=== PATIENT | female | born 1995 | race Two or more races ===

== ENCOUNTER 2021-01-07 10:17 | Emergency (ER) | payer MEDICAID, OTHER ==
[~2021-01-07] VITALS: Ht 162.6 cm; Wt 131.5 kg
[2021-01-07] MEDS ORDERED: KETOROLAC TROMETH 60MG/2ML VIAL IM ONE (10:45)
[2021-01-07 10:49] LABS: Urine Bacteria FEW /hpf (None Seen); Urine Blood Negative /uL (Negative); Urine Mucus FEW (None Seen); Urine Specific Gravity 1.023 (1.001-1.035); Urine WBC 3 /hpf (0 - 5)
[2021-01-07 11:16] VITALS: BP 133/84
== END 2021-01-07 11:18 | disposition home or self-care (01) ==
LOC: ER 10:17
DX: S39.012A Strain of muscle, fascia and tendon of lower back, initial encounter (principal); M62.838 Other muscle spasm; E66.01 Morbid (severe) obesity due to excess calories; Z68.42 Body mass index [BMI] 45.0-49.9, adult; X58.XXXA Exposure to other specified factors, initial encounter; Y93.01 Activity, walking, marching and hiking; Y92.89 Other specified places as the place of occurrence of the external cause; Y99.8 Other external cause status
CPT/HCPCS: 81001; 96372; 99283; J1885

== ENCOUNTER 2022-07-05 09:54 | Observation (INO) | payer MEDICAID ==
[2022-07-05 10:54] LABS: Basophils # (auto) 0 10 ^3/uL (0-0.2); Basophils % (auto) 0.2 % (0.0-2.0); Eosinophils # (auto) 0 10 ^3/uL (0-0.8); Eosinophils % (auto) 0.4 % (0.0-7.0); Hemoglobin 11.4 g/dL (12.2-16.2); Lymphocytes # (auto) 1.6 10 ^3/uL (0.4-5.4); Lymphocytes % (auto) 15.9 % (10.0-50.0); Mean Corpuscular Hemoglobin 31.8 pg (28.0-32.0); Mean Corpuscular Hgb Conc. 35.5 g/dL (32.0-36.0); Mean Corpuscular Volume 89.7 fL (80.0-100.0); Monocytes # (auto) 0.9 10 ^3/uL (0-1.3); Monocytes % (auto) 8.4 % (0.0-12.0); Neutrophils # (auto) 7.7 10 ^3/uL (1.6-8.6); Neutrophils % (auto) 75.1 % (37.0-80.0); Nucleated Red Blood Cells % 0.1 %; Red Blood Cells 3.57 10^6/uL (4.0-5.20); Red Cell Distribution Width 12.6 % (11.8-14.3); White Blood Cell 10.2 10^3/uL (4.4-10.8)
[2022-07-05 11:15] LABS: Albumin 2.9 g/dL (3.4-5.0); BUN/Creatinine Ratio 19.6; Calcium 8.7 mg/dL (8.5-10.1); Potassium 4.1 mmol/L (3.5-5.1)
[2022-07-05 11:18] LABS: Bilirubin, Total 0.3 mg/dL (0.2-1.0)
[2022-07-05 11:40] LABS: INR 0.94 (0.9-1.15); Partial Thromboplastin Time 26.8 sec (24.6-33.4)
[2022-07-05 11:51] LABS: Urine Bacteria FEW /hpf (None Seen); Urine Blood Negative /uL (Negative); Urine Mucus FEW (None Seen); Urine Specific Gravity 1.011 (1.001-1.035); Urine WBC 2 /hpf (0 - 5)
[2022-07-07 18:26] LABS: Protein, Urine 5.9 mg/dL (0.0-11.9)
== END 2022-07-05 12:30 | disposition home or self-care (01) ==
LOC: LDRP 09:54 → UNDOADMOB 09:54 → LDRP 10:20
PROVIDERS: ADMIT Obstetrics & Gynecology; ATTEND Obstetrics & Gynecology
DX: O13.3 Gestational [pregnancy-induced] hypertension without significant proteinuria, third trimester (principal); Z3A.30 30 weeks gestation of pregnancy
CPT/HCPCS: 36415; 59025; 80053; 81001; 81002; 82570; 83615; 84156; 84550; 85025; 85362; 85379; 85384; 85610; 85730; 94760; G0378

== ENCOUNTER → 2022-08-16 | Outpatient (CLI) | payer MEDICAID ==
[2022-08-16 08:56] LABS: Basophils # (auto) 0 10 ^3/uL (0-0.2); Basophils % (auto) 0.1 % (0.0-2.0); Eosinophils # (auto) 0.1 10 ^3/uL (0-0.8); Eosinophils % (auto) 0.7 % (0.0-7.0); Hematocrit 35.3 % (36.0-46.0); Hemoglobin 12.5 g/dL (12.2-16.2); Lymphocytes # (auto) 2.1 10 ^3/uL (0.4-5.4); Mean Corpuscular Hgb Conc. 35.3 g/dL (32.0-36.0); Mean Corpuscular Volume 87.9 fL (80.0-100.0); Monocytes # (auto) 0.9 10 ^3/uL (0-1.3); Monocytes % (auto) 6.9 % (0.0-12.0); Neutrophils # (auto) 9.8 10 ^3/uL (1.6-8.6); Neutrophils % (auto) 76.3 % (37.0-80.0); Red Blood Cells 4.02 10^6/uL (4.0-5.20); White Blood Cell 12.9 10^3/uL (4.4-10.8)
[2022-08-17 08:07] LABS: RPR Non Reactive (Non Reactive)
== END | disposition home or self-care (01) ==
LOC: LAB 08:43
PROVIDERS: ATTEND Obstetrics & Gynecology
DX: Z34.80 Encounter for supervision of other normal pregnancy, unspecified trimester (principal); Z3A.00 Weeks of gestation of pregnancy not specified
CPT/HCPCS: 36415; 85025; 86592

== ENCOUNTER 2022-08-23 09:18 | Inpatient (IN) | payer MEDICAID ==
[~2022-08-23] VITALS: Ht 162.6 cm; Wt 96.2 kg
[2022-08-23] MEDS ORDERED: PREN-96 PO (09:38)
[2022-08-23 09:45] LABS: Basophils # (auto) 0 10 ^3/uL (0-0.2); Basophils % (auto) 0.3 % (0.0-2.0); Eosinophils # (auto) 0.1 10 ^3/uL (0-0.8); Eosinophils % (auto) 0.8 % (0.0-7.0); Hematocrit 34.5 % (36.0-46.0); Hemoglobin 12.1 g/dL (12.2-16.2); Lymphocytes # (auto) 1.7 10 ^3/uL (0.4-5.4); Mean Corpuscular Hemoglobin 30.9 pg (28.0-32.0); Mean Corpuscular Hgb Conc. 35.1 g/dL (32.0-36.0); Mean Corpuscular Volume 88.3 fL (80.0-100.0); Monocytes # (auto) 0.9 10 ^3/uL (0-1.3); Monocytes % (auto) 8.4 % (0.0-12.0); Neutrophils # (auto) 8.1 10 ^3/uL (1.6-8.6); Neutrophils % (auto) 74.5 % (37.0-80.0); Red Blood Cells 3.91 10^6/uL (4.0-5.20); Red Cell Distribution Width 12.8 % (11.8-14.3); White Blood Cell 10.9 10^3/uL (4.4-10.8)
[2022-08-23 10:13] LABS: INR 0.93 (0.9-1.15); Partial Thromboplastin Time 27.6 sec (24.6-33.4)
[2022-08-23 10:15] LABS: Albumin 2.8 g/dL (3.4-5.0); BUN/Creatinine Ratio 15.7; Bilirubin, Total 0.5 mg/dL (0.2-1.0); Calcium 8.1 mg/dL (8.5-10.1); Potassium 3.9 mmol/L (3.5-5.1); Total Protein 6.2 g/dL (6.4-8.2); Uric Acid 4.2 mg/dL (2.6-6.0); Urine Bacteria FEW /hpf (None Seen); Urine Blood Negative /uL (Negative); Urine Specific Gravity 1.006 (1.001-1.035); Urine WBC 3 /hpf (0 - 5)
[2022-08-23] MEDS ORDERED: LABETALOL HCL 200 MG TAB PO ONE (10:15)
[2022-08-23 10:19] LABS: Protein, Urine 11.2 mg/dL (0.0-11.9)
[2022-08-23] MEDS ORDERED: LIDOCAINE 2%HCL (LOCAL ANESTH.) INJ 20ML MDV IJ PRN (11:30)
[2022-08-23] MEDS ORDERED: LACT. RINGERS/OXYTOCIN 20UNITS 500 ML IV ONE ×2 (11:30→12:00)
[2022-08-23] MEDS ORDERED: BUTORPHANOL TARTRATE 2 MG/1 ML VIAL IV PRN ×2 (11:30)
[2022-08-23] MEDS ORDERED: WITCH HAZEL-GLYCERIN PAD TOP PRN (11:30)
[2022-08-23] MEDS ORDERED: DERMOPLAST 60ML BOTTLE TOP PRN (11:30)
[2022-08-23] MEDS ORDERED: PROMETHAZINE HCL 25 MG/ML 1ML IV PRN (11:30)
[2022-08-23] MEDS ORDERED: PHISODERM TOP SOLN 240ML BTL TOP PRN (11:30)
[2022-08-23] MEDS: LACTATED RINGER'S 1,000 ML IV SCH ×2 (11:57→19:03)
[2022-08-23 12:10] LABS: Alcohol, Urine < 3.0 mg/dL (0-10); Amphetamine Screen, Urine NEGATIVE (NEGATIVE); Barbiturate Scree,Urine NEGATIVE (NEGATIVE); Benzodiazephine Screen, Urine NEGATIVE (NEGATIVE); Cannabinoid Screen, Urine NEGATIVE (NEGATIVE); Cocaine Screen, Urine NEGATIVE (NEGATIVE); Opiate Scree,Urine NEGATIVE (NEGATIVE); Phencyclidine Screen, Urine NEGATIVE (NEGATIVE)
[2022-08-23] MEDS: miSOPROStol 50 MCG per PRE-CUT 1/2 TAB PO PRN ×3 (12:25→20:51)
[2022-08-23] MEDS: hydrALAZINE HCL 20 MG/ML VL IV PRN ×3 (20:57→21:49)
[2022-08-23] MEDS: LABETALOL HCL 200 MG TAB PO SCH (21:48)
[2022-08-24] VITALS (9 sets, daily range): BP systolic 110–146; BP diastolic 53–92
[2022-08-24] MEDS: LACTATED RINGER'S 1,000 ML IV SCH ×3 (01:06→11:40)
[2022-08-24 07:07] LABS: RPR Non Reactive (Non Reactive)
[2022-08-24] MEDS ORDERED: NALOXONE HCL 0.4 MG/ML VIAL IV ONE (07:15)
[2022-08-24] MEDS ORDERED: fentaNYL CITRATE 100 MCG/2 ML VL IV ONE ×2 (07:15→08:00)
[2022-08-24] MEDS ORDERED: ePHEDrine SULFATE 50 MG/ML AMP IV ONE (07:15)
[2022-08-24] MEDS ORDERED: LACTATED RINGER'S 500 ML IV ONE (07:15)
[2022-08-24] MEDS ORDERED: ROPIVACAINE HCL 200 ML EPI SCH ×2 (07:15→08:30)
[2022-08-24] MEDS ORDERED: LIDOCAINE HCL 2 %PF INJ 10ML AMP IJ ONE (07:15)
[2022-08-24] MEDS ORDERED: TERBUTALINE SULFATE 1 MG/ML 1ML VIAL SC PRN (07:30)
[2022-08-24] MEDS ORDERED: LACT. RINGERS/OXYTOCIN 20UNITS 1,000 ML IV SCH (07:30)
[2022-08-24] MEDS ORDERED: fentaNYL CITRATE 100 MCG/2 ML VL ONE ×2 (07:51→18:39)
[2022-08-24] MEDS ORDERED: Lidocaine W-Epinephrine 1.5%-1:200,000 INJ 10ml Vial ONE (08:19)
[2022-08-24] MEDS ORDERED: hydrALAZINE HCL 20 MG/ML VL IV ONE (10:00)
[2022-08-24] MEDS ORDERED: ceFAZolin 2 GM/D5W100ml 100 ML IV STA (14:07)
[2022-08-24] MEDS ORDERED: miSOPROStol 100 mcg TAB SL PRN (15:30)
[2022-08-24] MEDS ORDERED: miSOPROStol 100 mcg TAB PR PRN (15:30)
[2022-08-24] MEDS ORDERED: CARBOPROST TROMETHAMINE 250 MCG/1ML VIAL IM ONE ×2 (15:30→18:59)
[2022-08-24] MEDS ORDERED: MORPHINE SULF PF 5 MG/10 ML VIAL ONE (18:39)
[2022-08-24] MEDS ORDERED: MIDAZOLAM HCL 2MG/2ML 2ml VIAL (1mg/ml) ONE (18:39)
[2022-08-24] MEDS ORDERED: ePHEDrine SULFATE 50 MG/ML AMP IV PRN (19:15)
[2022-08-24] MEDS ORDERED: NALBUPHINE HCL 10 MG/1ml INJECTION SUBCUT ONE (19:15)
[2022-08-24] MEDS ORDERED: hydrALAZINE HCL 20 MG/ML VL IV PRN (19:15)
[2022-08-24] MEDS ORDERED: ONDANSETRON HCL 4 MG/2 ML VIAL IV PRN ×3 (19:15→19:30)
[2022-08-24] MEDS ORDERED: DIPHENOXYLATE W/ATROPINE 2.5 MG TAB PO ONE (19:15)
[2022-08-24] MEDS ORDERED: DexAMETHasone SOD PHOS 10MG/1ML VIAL INJ IV PRN (19:15)
[2022-08-24] MEDS ORDERED: LABETALOL HCL 5 MG/ML 4ML SYRINGE IV PRN (19:15)
[2022-08-24] MEDS ORDERED: diphenhdrAMINE HCL 50 MG/1 ML VL IV PRN (19:15)
[2022-08-24] MEDS ORDERED: MIDAZOLAM HCL 2MG/2ML 2ml VIAL (1mg/ml) IV PRN (19:15)
[2022-08-24] MEDS ORDERED: NALOXONE HCL 0.4 MG/ML VIAL IV PRN (19:15)
[2022-08-24] MEDS ORDERED: HYDROmorphone HCL 2 MG/ML VL/or syr IV PRN (19:15)
[2022-08-24] MEDS ORDERED: HYDR-4902 PO (19:24)
[2022-08-24] MEDS ORDERED: DOCU-94 PO (19:24)
[2022-08-24] MEDS ORDERED: IBUP800T27 PO (19:24)
[2022-08-24] MEDS ORDERED: hydrALAZINE HCL 20 MG/ML VL ONE (19:30)
[2022-08-24] MEDS ORDERED: LACT. RINGERS/OXYTOCIN 20UNITS 1,000 ML IV ONE (19:30)
[2022-08-24] MEDS ORDERED: GUM (CHEWING) 1 GUM CHEW CHEW ONE (19:30)
[2022-08-24] MEDS ORDERED: ceFAZolin 1GM/50ML 50 ML IV SCH (22:00)
[2022-08-24] MEDS ORDERED: DIPHENOXYLATE W/ATROPINE 2.5 MG TAB PO SCH (22:00)
[2022-08-24] MEDS: ceFAZolin 1GM/50ML 50 ML IV SCH (22:09)
[2022-08-24] MEDS: LABETALOL HCL 200 MG TAB PO SCH (22:11)
[2022-08-24 23:07] LABS: Basophils # (auto) 0 10 ^3/uL (0-0.2); Basophils % (auto) 0.2 % (0.0-2.0); Eosinophils # (auto) 0 10 ^3/uL (0-0.8); Eosinophils % (auto) 0.1 % (0.0-7.0); Hematocrit 31.2 % (36.0-46.0); Hemoglobin 10.9 g/dL (12.2-16.2); Lymphocytes # (auto) 1.3 10 ^3/uL (0.4-5.4); Lymphocytes % (auto) 8.5 % (10.0-50.0); Mean Corpuscular Hemoglobin 31.6 pg (28.0-32.0); Mean Corpuscular Volume 90.2 fL (80.0-100.0); Monocytes % (auto) 6.6 % (0.0-12.0); Neutrophils # (auto) 13.1 10 ^3/uL (1.6-8.6); Neutrophils % (auto) 84.6 % (37.0-80.0); Red Blood Cells 3.47 10^6/uL (4.0-5.20); Red Cell Distribution Width 13.3 % (11.8-14.3); White Blood Cell 15.5 10^3/uL (4.4-10.8)
[2022-08-25] VITALS (15 sets, daily range): BP systolic 100–139; BP diastolic 56–120
[2022-08-25] MEDS ORDERED: ACETAMINOPHEN IV 1000 MG/100ML (10MG/ML) IV ONE (03:00)
[2022-08-25] MEDS: ceFAZolin 1GM/50ML 50 ML IV SCH ×3 (05:39→22:05)
[2022-08-25 06:33] LABS: Basophils # (auto) 0 10 ^3/uL (0-0.2); Basophils % (auto) 0.2 % (0.0-2.0); Eosinophils # (auto) 0 10 ^3/uL (0-0.8); Eosinophils % (auto) 0.3 % (0.0-7.0); Hematocrit 28.1 % (36.0-46.0); Hemoglobin 9.8 g/dL (12.2-16.2); Lymphocytes # (auto) 1.6 10 ^3/uL (0.4-5.4); Lymphocytes % (auto) 14.2 % (10.0-50.0); Mean Corpuscular Hemoglobin 31.6 pg (28.0-32.0); Mean Corpuscular Hgb Conc. 34.9 g/dL (32.0-36.0); Mean Corpuscular Volume 90.4 fL (80.0-100.0); Monocytes % (auto) 8.9 % (0.0-12.0); Neutrophils # (auto) 8.8 10 ^3/uL (1.6-8.6); Neutrophils % (auto) 76.4 % (37.0-80.0); Nucleated Red Blood Cells % 0.1 %; Red Blood Cells 3.11 10^6/uL (4.0-5.20); Red Cell Distribution Width 13.1 % (11.8-14.3); White Blood Cell 11.6 10^3/uL (4.4-10.8)
[2022-08-25] MEDS ORDERED: BISACODYL 10 MG RECT SUPP PR PRN (08:30)
[2022-08-25] MEDS ORDERED: HYDROcodone-ACET 5/325MG TAB PO PRN (08:30)
[2022-08-25] MEDS: IBUPROFEN 800 MG TAB PO PRN ×2 (08:53→22:29)
[2022-08-25] MEDS: HYDROcodone-ACET 5/325MG TAB PO PRN (08:53)
[2022-08-25] MEDS: DOCUSATE SOD 100 MG CAP PO SCH ×2 (09:51→22:05)
[2022-08-25] MEDS: FERROUS SULFATE 325mg EC TAB PO SCH ×2 (09:51→22:05)
[2022-08-25] MEDS: DOCUSATE CALCIUM 240 MG CAP PO SCH (09:51)
[2022-08-25] MEDS: SIMETHICONE 80 MG CHEWABLE TABLET PO SCH ×3 (11:45→22:05)
[2022-08-26 03:00] VITALS: BP 143/77
[2022-08-26] MEDS: ceFAZolin 1GM/50ML 50 ML IV SCH ×2 (05:33→13:50)
[2022-08-26] MEDS: SIMETHICONE 80 MG CHEWABLE TABLET PO SCH ×4 (05:35→21:41)
[2022-08-26 06:30] VITALS: BP 139/87
[2022-08-26] MEDS: DOCUSATE CALCIUM 240 MG CAP PO SCH (09:35)
[2022-08-26] MEDS: DOCUSATE SOD 100 MG CAP PO SCH ×2 (09:35→21:41)
[2022-08-26] MEDS: FERROUS SULFATE 325mg EC TAB PO SCH ×2 (09:35→21:41)
[2022-08-26 11:20] VITALS: BP 138/89
[2022-08-26] MEDS: HYDROcodone-ACET 5/325MG TAB PO PRN (13:56)
[2022-08-26 15:04] VITALS: BP 139/87
[2022-08-26 18:35] VITALS: BP 137/89
[2022-08-26] MEDS: IBUPROFEN 800 MG TAB PO PRN (21:48)
[2022-08-26 23:00] VITALS: BP 140/87
[2022-08-27 03:00] VITALS: BP 136/84
[2022-08-27] MEDS: SIMETHICONE 80 MG CHEWABLE TABLET PO SCH (05:41)
[2022-08-27 07:00] VITALS: BP 144/91
[2022-08-27] MEDS ORDERED: LABETALOL HCL 200 MG TAB PO SCH (09:00)
[2022-08-27 10:00] VITALS: BP 136/81
[2022-08-27 11:00] VITALS: BP 147/92
[2022-08-27] MEDS ORDERED: LABE100T4 PO ×2 (11:52→11:53)
== END 2022-08-27 13:01 | disposition home or self-care (01) | DRG 540 ==
LOC: LDRP 09:18 → OBSVTOIN 11:20 → LDRP 11:23
PROVIDERS: ADMIT Obstetrics & Gynecology; ATTEND Obstetrics & Gynecology
PROC: 10D00Z1 Extraction of Products of Conception, Low, Open Approach (ICD-10-PCS; principal; 2022-08-24 18:35)
DX: O77.9 Labor and delivery complicated by fetal stress, unspecified (principal); O99.214 Obesity complicating childbirth; E66.01 Morbid (severe) obesity due to excess calories; O13.4 Gestational [pregnancy-induced] hypertension without significant proteinuria, complicating childbirth; O34.211 Maternal care for low transverse scar from previous cesarean delivery; Z3A.37 37 weeks gestation of pregnancy; Z20.822 Contact with and (suspected) exposure to COVID-19; Z37.0 Single live birth
CPT/HCPCS: 36415; 59025; 59200; 62282; 76818; 80053; 80307; 81001; 81002; 82570; 84156; 84550; 85025; 85610; 85730; 86592; 86850; 86900; 86901; 87426; 94760; 94762; 96360; 96361; 96365; 96366; 96374; 96375; G0378; J0131; J0690; J2250; J2590

== ENCOUNTER 2025-01-08 22:28 | Emergency (ER) | payer MEDICAID ==
[~2025-01-08] VITALS: Ht 162.6 cm; Wt 120.2 kg
[~2025-01-08 22:28] MED LIST: DOCU-94 PO; HYDR-4902 PO; IBUP-1456 PO; LABE100T7 PO; PREN-96 PO
--- NOTE | 2025-01-08 22:54 | ED.PDOC ---
HPI Comments 29 year old female presents to the ED with a chief compliant of hypertension onset 3 days. Patient states she has been checking BP at home for the past 3 days has been elevated, last BP was 167/130. She has also been experiencing nausea, vomiting and headache. Patient has been complaint with HTN medication, Metoprolol 100 mg last dose was at 17:00, Losartan 25 mg. For the past week, patient was sick, believed she had food poisoning. Upon ED arrival, BP was 152/99. PMHx HTN. Denies blurry vision, chest pain, shortness of breath, fevers, chills, diarrhea, constipation, abdominal pain, dysuria, hematuria. No other associated symptoms, modifiers, recent injuries or sick contacts present at this time. Chief Complaint: High Blood Pressure Time Seen by MD: 22:45 Primary Care Provider: OUT OF AREA Reviewed Notes: Medications, Allergies Allergies: Coded Allergies: NO KNOWN ALLERGIES (Unverified , 01/07/21) Home Meds Active Scripts Ibuprofen (Ibuprofen) 800 Mg Tab, 800 MG PO TID PRN for 15 Days, #40 TAB Prov:ROSCOE FARLEY DO 08/24/22 Hydrocodone-Acetaminophen (Hydrocodone Bitartrate/AC 5-325 mg) 1 Tab Tab, 1 TAB PO Q6HPRN PRN for 5 Days, #20 TAB Prov:ROSCOE FARLEY DO 08/24/22 Docusate Sodium (Colace) 100 Mg Cap, 1 CAP PO BID, #60 CAP 2 Refills Prov:ROSCOE FARLEY DO 08/24/22 Reported Medications Labetalol Hcl (Labetalol Hcl) 100 Mg Tab, 1 TAB PO BID, #60 TAB 5 Refills 08/27/22 Labetalol Hcl (Labetalol Hcl) 100 Mg Tab, 1 TAB PO BID, #60 TAB 5 Refills 08/27/22 Vit W/ Ferrous Fumara ( One Daily) Daily Tab, 1 TAB PO DAILY, #90 TAB 3 Refills 08/23/22 Information Source: Patient Mode of Arrival: Ambulatory Severity: Moderate Timing: Days Duration: Since onset Prehospital treatment: None Associated Signs and Symptoms: N/V Past Medical History PAST MEDICAL HISTORY: HTN Surgical History: Denies all surgeries ENVIRONMENTAL SAMPLER History: Denies all ENVIRONMENTAL SAMPLER Hx Family History Family History: Reviewed,noncontributory to illness Social History Smoker: Non-Smoker Alcohol: Denies ETOH Use Drugs: Denies Drug Use Lives In: Home Constitutional: denies: chills, diaphoresis, fatigue, fever, malaise, sweats, weakness, others EENTM: denies: blurred vision, double vision, ear bleeding, ear discharge, ear drainage, ear pain, ear ringing, eye pain, eye redness, hearing loss, mouth pain, mouth swelling, nasal discharge, nose bleeding, nose congestion, nose pain, photophobia, tearing, throat pain, throat swelling, voice changes, others Respiratory: denies: cough, hemoptysis, orthopnea, SOB at rest, shortness of breath, SOB with excertion, stridor, wheezing, others Cardiovascular: reports: others (hypertension); denies: chest pain, dizzy spells, diaphoresis, Dyspnea on exertion, edema, irregular heart beat, left arm pain, lightheadedness, palpitations, PND, syncope Gastrointestinal: reports: nausea, vomiting; denies: abdomen distended, abdominal pain, blood streaked bowels, constipated, diarrhea, dysphagia, difficulty swallowing, hematemesis, melena, poor appetite, poor fluid intake, rectal bleeding, rectal pain, others Genitourinary: denies: abnormal vagina bleeding, burning, dyspareunia, dysuria, flank pain, frequency, hematuria, incontinence, pain, , vagina discharge, urgency, others Neurological: reports: headache; denies: dizziness, fainting, left sided numbness, left sided weakness, numbness, paresthesia, pre-existing deficit, right sided numbness, right sided weakness, seizure, speech problems, tingling, tremors, weakness, others Musculoskeletal: denies: back pain, gout, joint pain, joint swelling, muscle pain, muscle stiffness, neck pain, others Integumetry: denies: bruises, change in color, change in hair/nails, dryness, laceration, lesions, lumps, rash, wounds, others Allergic/Immunocompromised: denies: Difficulty Healing, Frequent Infections, Hives, Itching, others Hematologic/Lymphatic: denies: anemia, blood clots, easy bleeding, easy bruising, swollen glands, others Endocrine: denies: excessive hunger, excessive sweating, excessive thirst, excessive urination, flushing, intolerance to cold, intolerance to heat, unexplained weight gain, unexplained weight loss, others Psychiatric: denies: anxiety, bipolar disorder, depression, hopeless, panic disorder, schizophrenia, sleepless, suicidal, others All Other Systems: Reviewed and Negative Physical Exam General Appearance: Normal HEENT: Normal ENT Inspection, Pharynx Normal, TMs Normal Neck: Full Range of Motion, Non-Tender, Normal, Normal Inspection Respiratory: Chest Non-Tender, Lungs Clear, No Accessory Muscle Use, No Respiratory Distress, Normal Breath Sounds Cardiovascular: No Edema, No JVD, No Murmur, No Gallop, Normal Peripheral Pulses, Regular Rate/Rhythm Breast Exam: Deferred Gastrointestinal: No Organomegaly, Non Tender, No Pulsatile Mass, Normal Bowel Sounds, Soft Genitalia: Deferred Pelvic: Deferred Rectal: Deferred Extremities: No calf tenderness, Normal capillary refill, Normal inspection, Normal range of motion, Non-tender, No pedal edema Musculoskeletal : Apperance: Normal Neurologic: Alert, front desk attendant II-XII nml as Tested, No Motor Deficits, Normal Affect, Normal Mood, No Sensory Deficits Cerebellar Function: Normal Reflexes: Normal Skin: Dry, Normal Color, Warm Lymphatic: No Adenopathy Was a procedure done? Was a procedure done?: No CP Differential Dx Differential Diagnosis: A-Flutter, Angina Differential Diagnosis: CHF, HTN Essential Differential Diagnosis: Chest Wall Pain X-Ray, Labs, Meds, VS Vital Signs Date Time Temp Pulse Resp B/P (MAP) Pulse Ox O2 Delivery O2 Flow Rate FiO2 01/08/25 22:39 88 01/08/25 22:37 98.4 97 18 152/99 (116) 97 98.4 Lab Test 01/08/25 22:52 Range/Units White Blood Count 9.9 4.4-10.8 10^3/uL Red Blood Count 4.63 4.0-5.20 10^6/uL Hemoglobin 13.9 12.2-16.2 g/dL Hematocrit 39.2 36.0-46.0 % Mean Corpuscular Volume 84.8 80.0-100.0 fL Mean Corpuscular Hemoglobin 30.1 28.0-32.0 pg Mean Corpuscular Hemoglobin Concent 35.6 32.0-36.0 g/dL Red Cell Distribution Width 12.3 11.8-14.3 % Platelet Count 287 140-450 10^3/uL Mean Platelet Volume 7.9 6.9-10.8 fL Neutrophils (%) (Auto) 74.2 37.0-80.0 % Lymphocytes (%) (Auto) 17.7 10.0-50.0 % Monocytes (%) (Auto) 7.1 0.0-12.0 % Eosinophils (%) (Auto) 0.7 0.0-7.0 % Basophils (%) (Auto) 0.3 0.0-2.0 % Neutrophils # (Auto) 7.3 1.6-8.6 10 ^3/uL Lymphocytes # (Auto) 1.8 0.4-5.4 10 ^3/uL Monocytes # (Auto) 0.7 0-1.3 10 ^3/uL Eosinophils # (Auto) 0.1 0-0.8 10 ^3/uL Basophils # (Auto) 0 0-0.2 10 ^3/uL Nucleated Red Blood Cells 0.1 % Sodium Level 139 136-145 mmol/L Potassium Level 4.0 3.5-5.1 mmol/L Chloride Level 105 98-107 mmol/L Carbon Dioxide Level 27 20-31 mmol/L Anion Gap 7 5-15 Blood Urea Nitrogen 10 9-23 mg/dL Creatinine 0.79 0.550-1.02 mg/dL Glomerular Filtration Rate Calc 105 >90 mL/min BUN/Creatinine Ratio 12.7 10.0-20.0 Serum Glucose 99 74-106 mg/dL Calcium Level 9.4 8.7-10.4 mg/dL Troponin I High Sensitivity < 3 L </=34 ng/L X-Ray, Labs, Meds, VS Comment Imaging: X-rays and CT scans were reviewed and interpreted by this provider, imaging shows no fractures and no pathological disease. Pending radiology review. Laboratory: Labs reviewed and interpreted by this provider. No significant abnormalities noted. Patient has prior medical visits reviewed. Med reconciliation performed Vital signs reviewed Time of 1ST Reevaluation: 23:15 Reevaluation 1ST: Improved Patient Education/Counseling: Diagnosis, Treatment, Prognosis Family Education/Counseling: No Family Present SEPSIS Sepsis Screen Date sepsis recognized/suspect: Jan 08, 2025 Time Sepsis recognized/suspect: 2237 Recent Procedure: No On Antibiotic Therapy: No Respiratory Rate >20: No Heart Rate >90: Yes Temp<36 C (96.8 F) or >38.3 C: No SBP <90 or MAP <65 mmHG: No New Acute Mental Status Change: No Is the patient on CPAP, BIPAP,: No Physician Orders Chest Portable (01/08/25 22:47) Urinalysis (01/08/25 22:47) Vital Signs Date Time Temp Pulse Resp B/P (MAP) Pulse Ox O2 Delivery O2 Flow Rate FiO2 01/08/25 22:39 88 01/08/25 22:37 98.4 97 18 152/99 (116) 97 98.4 Laboratory Tests Test 01/08/25 22:52 White Blood Count 9.9 10^3/uL (4.4-10.8) Departure 1 Departure Time of Disposition: 00:41 Impression: Primary Impression: Tension headache Additional Impressions: Gastroenteritis Hypertension Qualified Codes: I10 - Essential (primary) hypertension Disposition: 01 HOME / SELF CARE / HOMELESS Condition: Fair Discharged With: Self Critical Care Note Critical Care Time?: No Stability Stability form required: No Heart Score Heart Score: Heart Score Response (Comments) Value History N/A 0 EKG N/A 0 Age N/A 0 Risk Factors N/A 0 Troponin N/A 0 Total 0 I personally scribed for ERICA ALLEN ([email or web address]) on 01/08/25 at 22:54. Electronically submitted by Bonnie Del Rosario ([email or web address]). ERICA ALLEN Jan 08, 2025 22:54
[2025-01-08 23:05] LABS: Hematocrit 39.2 % (36.0-46.0); Hemoglobin 13.9 g/dL (12.2-16.2); Mean Corpuscular Hemoglobin 30.1 pg (28.0-32.0); Mean Corpuscular Volume 84.8 fL (80.0-100.0); Nucleated Red Blood Cells % 0.1 %
[2025-01-08 23:13] LABS: Chloride 105 mmol/L (98-107); Potassium 4.0 mmol/L (3.5-5.1); Sodium 139 mmol/L (136-145)
[2025-01-08 23:14] LABS: Anion Gap 7 (5-15); Carbon Dioxide 27 mmol/L (20-31)
[2025-01-08 23:15] LABS: Calcium 9.4 mg/dL (8.7-10.4)
[2025-01-08 23:19] LABS: Glucose 99 mg/dL (74-106)
[2025-01-08 23:20] LABS: BUN/Creatinine Ratio 12.7 (10.0-20.0); Blood Urea Nitrogen 10 mg/dL (9-23)
--- NOTE | 2025-01-08 23:23 | DVH ---
EXAM: XY CHEST PORTABLE DATE OF SERVICE: 01/08/2025 11:00 PM INDICATION: sob TECHNIQUE: Single frontal view. COMPARISON: None FINDINGS: No focal consolidations. No pleural effusion or pneumothorax. Cardiac silhouette is within normal limits. IMPRESSION: 1. No focal consolidations.
--- NOTE | 2025-01-08 23:38 | ECG ---
[facility] Test Date: 2025-01-08 Test Time: 22:39:22 Pat Name: EARL MOORE Department: er Room: Gender: F [employer] Consultant: laila : 1995 Requested By: EMERGENCY EMERGENCY Order Number: [id number] Reading MD: Measurements Intervals [place] Rate: 88 P: 46 FL: 155 QRS: 63 QRSD: 76 T: 56 QT: 358 QTc: 434 Interpretive Statements Sinus rhythm Please click the below link to view image of tracing.
[2025-01-09 01:02] VITALS: BP 140/105; TEMP 97.8
[2025-01-09] MEDS: KETOROLAC TROMETH 30 MG/ML 1ML VIAL IM ONE (02:41)
[2025-01-09 02:46] VITALS: PULSE 92; RESP 14; O2SAT 96
== END 2025-01-09 02:47 | disposition home or self-care (01) ==
LOC: ER 22:28
DX: G44.209 Tension-type headache, unspecified, not intractable (principal); K52.9 Noninfective gastroenteritis and colitis, unspecified; I10 Essential (primary) hypertension; Z79.899 Other long term (current) drug therapy
CPT/HCPCS: 36415; 71045; 80048; 84484; 85025; 93005; 96372; 99285; J1885